=== PATIENT | male | born 1950 | race Caucasian/White ===

== ENCOUNTER → 2018-02-14 10:34 | Outpatient (POV) | payer MEDICARE, SELFPAY | PROVIDERS: Visit Provider Physician Assistant | DX: Z00.00 Encounter for general adult medical examination without abnormal findings (principal) ==

== ENCOUNTER → 2018-06-20 10:47 | Outpatient (CLI) | payer MEDICARE, SELFPAY ==
--- NOTE | 2018-06-20 11:13 | XR_ITS ---
XR shoulder RT min 2V Ordering Physician: Pk Fowler MD Patient Age: 67 years: Male HISTORY: ITS.REASON: RT SHOULDER JOINT PAIN right shoulder pain with decreased range of motion TECHNIQUE: 3 views right shoulder COMPARISON :April 24, 2016 FINDINGS There is narrowing subacromial space with hypertrophy bone along the inferior margin of acromion with the humeral head is likely beginning to form a pseudoarthrosis. Overall appearance here highly suggests underlying rotator cuff tear. Associated mild sclerotic changes at the superior aspect of the greater tuberosity and is junction with humeral head reflects this impingement. There are likely mild developing degenerative changes of glenohumeral joint. Humeral head and neck intact. AC joint arthropathy, hypertrophy. Moderate. Spurring here mainly directed directedsuperiorly. Bones well mineralized upper right ribs scapula and right lung apex unremarkable . [place] right lung clear. IMPRESSION: 1. underlying rotator cuff tear most certainly present . Marked narrowing subacromial space such that the humeral head likely impinges upon entry acromion due to the rotator cuff demise, & tear. It. 2. AC joint arthropathy hypertrophy 3. Mild degenerative changes glenohumeral joint.
== END ==
PROVIDERS: PCP Internal Medicine Adolescent Medicine; Visit Provider Internal Medicine Adolescent Medicine
DX: M25.511 Pain in right shoulder (principal)
CPT/HCPCS: 73030

== ENCOUNTER 2019-01-27 12:01 | Inpatient (IN) ==
--- NOTE | 2019-01-27 12:17 | Emergency Department Note ---
ED Disposition Clinical Impression: Gait disturbance, Multiple falls Leukocytosis Qualifiers: Leukocytosis type: unspecified Qualified Code(s): D72.829 - Elevated white blood cell count, unspecified Disposition: Admitted as Observation Condition on Discharge: Fair Referrals: Pk Fowler MD [Primary Care Provider] - - Critical Care Critical Care Time: No Attestation: On , the high probability of a clinically significant, sudden or life threatening deterioration of the following system(s) required my full and direct attention, intervention and personal management. The time I documented below is in addition to time spent performing reported procedures but includes the following listed in this critical care notation. Medical Decision Making - [place] Inquiry Pt receiving controlled substance: No Vital Signs: 01/27/19 12:17 01/27/19 12:32 01/27/19 13:32 Temperature 97.3 F L Temperature Source Temporal Artery Scan Pulse Rate [Right Brachial] 86 83 87 Respiratory Rate 17 Blood Pressure [Right Arm] 132/85 126/81 Blood Pressure Mean [Right Arm] 100 96 Blood Pressure Source [Right Arm] Automatic Cuff Blood Pressure Position [Right Arm] Sitting 02 Sat by Pulse Oximetry 93 L 94 L 94 L Oxygen Delivery Method Room Air 01/27/19 13:40 01/27/19 14:00 Temperature Temperature Source Pulse Rate [Right Brachial] 85 87 Respiratory Rate Blood Pressure [Right Arm] 148/92 H 140/79 Blood Pressure Mean [Right Arm] 110 99 Blood Pressure Source [Right Arm] Blood Pressure Position [Right Arm] 02 Sat by Pulse Oximetry 93 L 94 L Oxygen Delivery Method - Lab Data Lab Results 01/27/19 12:40: WBC 22.3 H*, RBC 5.23, Hgb 15.4, Hct 46.1, MCV 88.1, MCH 29.4, MCHC 33.4, RDW 13.3, Plt Count 120 L, MPV 9.1, Neut % (Auto) 45.9, Lymph % (Auto) 49.2, [place] % (Auto) 2.9, Eos % (Auto) 1.0, Baso % (Auto) 1.0, Neut # (Auto) 10.3 H, Lymph # (Auto) 11.0 H, [place] # (Auto) 0.7, Eos # (Auto) 0.2, Baso # (Auto) 0.2, Total Counted 100, Neutrophils % (Manual) 50, Band Neutrophils % 2.0, Lymphocytes % (Manual) 41, Atypical Lymphs % 1.0, Monocytes % (Manual) 4, Blast Cells % 2.0, Platelet Estimate Slight decrease, RBC Morphology Normal 01/27/19 12:40: Sodium 135 L, Potassium 3.4 L, Chloride 98, Carbon Dioxide 23, Anion Gap 17.4 H, BUN 19 H, Creatinine 1.29, Estimated Creat Clear 65, Estimated GFR 56 L, Est GFR ( Amer) 67, Glucose 189 H, Calcium 9.1, Total Bilirubin 0.6, AST 36, ALT 17, Alkaline Phosphatase 290 H, Troponin I < 0.02, Total Protein 7.5, Albumin 3.4, Globulin 4.1 H, Albumin/Globulin Ratio 0.8 L, TSH 2.21 01/27/19 12:40: Total Creatine Kinase 142 01/27/19 13:25: Lactate 1.7 01/27/19 13:50: Urine Color Yellow, Urine Appearance Clear, Urine pH 6.0, Ur Specific [place] 1.010, Urine Protein Trace, Urine Glucose (UA) 3+, Urine K etones Trace, Urine Blood Negative, Urine Nitrate Negative, Urine Bilirubin Negative, Urine Urobilinogen 0.2, Ur Leukocyte Esterase Negative, Urine WBC Occasional, Ur Squamous Epith Cells Occasional, Urine Bacteria 3+ Result diagrams: 01/27/19 12:40 01/27/19 12:40 Orders (Tests/Meds): ORDERS Category Date Time Status Blood Culture Stat Micro 01/27/19 13:12 Ordered Urine Culture Stat Micro 01/27/19 13:50 Received Urine Culture Stat Micro 01/27/19 14:39 Ordered - Radiology Data #1 Image(s): Chest, Hip, Femur Image Reviewed: Yes I reviewed the patient's radiology image, Yes I have reviewed radiologist's interpretation Hip and femur: No fracture dislocation Chest: Cardiomegaly, no acute process - CT Data CT Scan: Head Time Received: 14:[address] Reviewed: Yes: I have viewed the radiologist's interpretation Findings Narrative: IMPRESSION: No acute intracranial findings. Left mastoid sinus disease Dictated By: Reji Khan MD Signed By: <Electronically signed by Reji Khan MD in [place]> 01/27/19 1424 - ECG Data Tracing #1 EKG interpreted by Deo Nino MD: Rhythm: sinus Rate: 84 [place]: Left Ectopy: none Conduction: normal ST Segment Changes: none T Wave Changes: Nonspecific Q Waves: none LVH Baseline artifact present, but I consider the EKG adequate for accurate interpretation. Prior electrocardiagrams reviewed. No change from prior tracings. - Physician Consults Physician Consulted: Malcolm Time: 14:37 Reason -: Admission, Pt condition Comment/Response: Requests to admit the patient to the hospital. We discussed the patient's clinical information, including history, exam, laboratory and radiology results and ED course. Per hospital procedure, I will write temporary bridge inpatient orders on the patient. Specific orders requested by the admitting physician: Admit to observation. Catheterized urine specimen. Levaquin. General Adult HPI - General Stated complaint: ao 01/26/19/ fell Time Seen by Provider: 01/27/19 12:17 - History of Present Illness HPI narrative: Brought in by sister. He has fallen twice this week. First fell about 2:30 AM on Wednesday night while in the bathroom. Says that he got turned around on his cane. Fell into the heater. Has an abrasion of his right knee. He applied a Band-Aid. He fell again sometime during the night last night. He could not get up. He called his sister who found him this morning at 4:30 AM. He was on the floor at that time. She was able to get him up with great difficulty. She has given him a walker to try and walk with. He is able to stand with assistance. However, she says that when he tries to walk today he just stands and shakes. States he is dizzy when he stands up. He will not take any steps. He complains of a funny feeling in his right thigh and hip area, however denies any pain. His sister called Dr. Fowler, they advised him to come to the emergency room. They called for an ambulance and ambulance personnel assisted him to a car in a wheelchair. He denies any other injuries including no injury to head or neck. He has Parkinson's disease and normally has a shuffling gait, but he has been able to live alone and take care of himself. No recent changes in medications. He saw his family physician last week for routine visit and had normal blood work. He has a follow-up appointment on Wednesday. - Related Data Home Medications Medication Instructions Recorded Confirmed Allopurinol [Allopurinol 100mg 1 tab PO TID 01/27/19 01/27/19 tablet] Atorvastatin Calcium [Atorvastatin 10 mg PO DAILY 01/27/19 01/27/19 10mg Tab] Canagliflozin [Invokana] 1 tab PO DIRECTED 01/27/19 01/27/19 Carbidopa/Levodopa [Sinemet CR 1 tab PO BID 01/27/19 01/27/19 50/200mg tablet] Carvedilol [Carvedilol 25mg Tab] 1 tab PO DIRECTED 01/27/19 01/27/19 Levothyroxine Sodium 1 tab PO DAILY 01/27/19 01/27/19 [Levothyroxine 75mcg (0.075mg) Tab] Losartan Potassium 1 tab PO DIRECTED 01/27/19 01/27/19 Sitagliptin Phos/Metformin HCl 1 tab PO DIRECTED 01/27/19 01/27/19 [Janumet 50-500 mg Tablet] Tamsulosin HCl 1 tab PO DAILY 01/27/19 01/27/19 Allergies Allergy/AdvReac Type Severity Reaction Status Date / Time Penicillins [PENICILLINS] Allergy Unknown Verified 01/27/19 12:24 [facility] History - Hepatitis A Screen Attestation statement:: This patient has been screened for Hepatitis A risk factors. I have reviewed the patient's past medical history: Yes ROS Obtained: Yes All systems reviewed & no additional complaints - Constitutional Constitutional: Denies fever(s), Reports weakness - Cardiovascular Cardiovascular: Denies chest pain - Respiratory Respiratory: No cough, No dyspnea - Gastrointestinal Gastrointestingal: Denies: abdominal pain, diarrhea, vomiting - Genitourinary Male Genitourinary: Denies difficulty urinating - Musculoskeletal Musculoskeletal: Reports as per HPI - Neurologic Neurologic: Reports as per HPI Physical Exam - General General appearance: alert, in no apparent distress Comment: Sometimes slow to answer questions. Some extended pauses. - Head Head exam: atraumatic, normocephalic - Eye Eye exam: Present: normal appearance, PERRL, EOMI - ENT ENT exam: Present: mucous membranes moist - Neck Neck exam: Present: normal inspection, full ROM, trachea midline. Absent: tenderness - Chest Chest inspection: Present: normal inspection, symmetric chest wall rise - Respiratory Respiratory exam: Present: normal lung sounds bilaterally. Absent: respiratory distress - Cardiovascular Cardiovascular exam: Present: regular rate, normal rhythm, normal heart sounds - Abdominal Exam Abdominal exam: Present: soft. Absent: distention, tenderness, guarding - Extremities Exam Extremities exam: Present: full ROM, normal capillary refill, other (superficial abrasion R knee). Absent: tenderness - Neurological Exam Neurological exam: Present: alert, oriented X3, CN II-XII intact, other (No focal neurologic deficits). Absent: motor sensory deficit - Psychiatric Psychiatric exam: Present: normal affect, normal mood - Skin Skin exam: Present: warm, dry - Other Other exam information: No tenderness of right hip on palpation. No tenderness of right femur. No defo rmity. No ecchymosis or edema. No pain with internal, external rotation, or flexion of right hip.
[2019-01-27 12:50] LABS: Basophils # 0.2 K/mm3 (0-0.2); Eosinophils # 0.2 K/mm3 (0.0-0.4); Hematocrit 46.1 % (42.0-52.0); Hemoglobin 15.4 g/dL (14.1-18.0); Lymphocytes % 49.2 % (10-50); Mean Corpuscular HGB Conc 33.4 g/dL (31.8-35.4); Mean Corpuscular Hemoglobin 29.4 pg (27.0-31.2); Mean Corpuscular Volume 88.1 fl (80-94); Mean Platelet Volume 9.1 fl (7.4-10.4); Monocytes # 0.7 K/mm3 (0.1-1.0); Monocytes % 2.9 % (1.7-9.3); Neutrophils # 10.3 K/mm3 (1.8-7.8); Neutrophils % 45.9 % (37.0-80.0); Platelet Count 120 K/mm3 (142-424); Red Blood Count 5.23 M/mm3 (4.60-6.20); Red Cell Distribution Width 13.3 % (11.5-17.5); White Blood Count 22.3 K/mm3 (4.8-10.8)
[2019-01-27 13:15] LABS: Alanine Aminotransferase 17 U/L (12-78); Albumin Level 3.4 gm/dL (3.4-5.0); Albumin/Globulin Ratio 0.8 (1.1-1.8); Alkaline Phosphatase 290 U/L (46-116); Anion Gap 17.4 mEq/L (5-15); Aspartate Amino Transferase 36 U/L (15-37); Bilirubin,Total 0.6 mg/dL (0.2-1.0); Blood Urea Nitrogen 19 mg/dL (7-18); Calcium 9.1 mg/dL (8.5-10.1); Carbon Dioxide 23 mmol/L (21.0-32.0); Chloride 98 mmol/L (98-107); Globulin 4.1 gm/dl (1.3-3.2); Glucose 189 mg/dL (74-106); Lymphocytes % 41 % (10-50); Monocytes % 4 % (2-9); Neutrophils % 50 % (42-76); Potassium 3.4 mmoL/L (3.5-5.1); RBC Morphology Normal; Sodium 135 mmol/L (136-145); Thyroid Stimulating Hormone 2.21 uIU/ml (0.358-3.740); Total Cells Counted 100; Total Protein,Serum 7.5 gm/dL (6.4-8.2)
[2019-01-27 13:57] LABS: Microscopic, Urine URINE MICROSCOPIC (MICROSCOPIC)
[2019-01-27 13:59] LABS: Appearance,Urine CLEAR (Clear); Bilirubin,Urine Negative (Negative); Blood, Urine Negative (Negative); Color,Urine YELLOW (Yellow); Glucose,Urine (UA) 3+ (Negative); Ketones,Urine TRACE (Negative); Leukocyte Esterase,Urine Negative (Negative); Protein,Urine TRACE (Negative); Urobilinogen,Urine 0.2 EU/dl (0.2)
[2019-01-27 14:09] LABS: Bacteria,Urine 3+ /lpf; Squamous Epithelial Cell,Urine Occasional #/hpf (0-5); WBC,Urine Occasional #/hpf (0-3)
--- NOTE | 2019-01-27 19:46 | History & Physical Report ---
*Admission Date: 01/27/19 *Chief complaint: Freqent falls, elevated WBC *History of present illness: 68 year old long time patient of mine with DM 2, hyperlipidemia and HTN with Parkinson's disease diagnosed in the past 3 years who came to ER with increasing falls, ataxia, and instability. In ER found to have elevated WBC, o/w no major lab or xray problems, but was weak, ataxic and tired. Admitted for obs, ongoing testing. Of note, 6-8 weeks ago we increased the dose of Sinemet secondary to increasing symptoms which has helped until this weeks according to his sister. [facility] [place] History I have reviewed the patient's past medical history: Yes Medical History: Reports:: Congestive Heart Failure, Coronary Artery Disease, Diabetes Mellitus Type 2, Hyperlipidemia, Hypertension, Myocardial Infarction, Peripheral Artery Disease Denies:: Cancer, Internal Pacemaker, MRSA *Have you ever received a pneumonia vaccine?: Yes *Have you received a flu vaccine this season?: Yes Other Medical History: Reports: Hypothyroidism Comment:: Parkinson's Disease Other Surgeries: Yes: CABG, Cardiac Catheterization, Coronary Stent. No: Pacemaker Amputation: No Fractures: No - *Social History Educational Level: Attended High School Smoking Status: Never smoker Alcohol Intake: never *Occupational Status:: retired, disabled Household Members: none *Travel in the last 8 weeks: None Comment: Lives alone, retired from [employer] de[employer]. Sister helps with his affairs - Psychiatric History Expresses thoughts of harming self/others: None Suicide Plan Description: No Plan Family Hx:: Cancer, Heart Attack, Hyperlipidemia, Hypertension, Kidney Disease, Stroke, Thyroid Disorder Review of Systems - Review of Systems Review of systems:: pertinent systems reviewed and negative unless documented below - Constitutional Denies anorexia, Denies body ache(s) - Eyes Denies blind spots, Denies blurry vision - ENT Denies abnormal hearing - *Cardiovascular Reports leg swelling, Denies chest pain, Denies chest pain at rest, Denies leg pain with activity, Denies irregular heart rhythm - *Respiratory Denies change in phlegm color, Denies shortness of breath - *Gastrointestinal Denies abdominal pain - *Genitourinary Denies difficulty urinating - *Musculoskeletal Reports abnormal walking, Reports deformity, Reports stiffness - *Neurologic Reports abnormal walking, Reports abnormal movements, Reports unsteadiness, Reports dizziness, Reports frequent falls, Reports weakness, Denies headache(s) Meds Home Medications Medication Instructions Recorded Confirmed Type Allopurinol [Allopurinol 100mg 100 mg PO TID 01/27/19 01/27/19 History tablet] Atorvastatin Calcium [Atorvastatin 10 mg PO DAILY 01/27/19 01/27/19 History 10mg Tab] Canagliflozin [Invokana] 300 mg PO DAILY 01/27/19 01/27/19 History Carbidopa/Levodopa [Sinemet CR 1 tab PO BID 01/27/19 01/27/19 History 50/200mg tablet] Carvedilol [Carvedilol 25mg Tab] 25 mg PO BID 01/27/19 01/27/19 History Levothyroxine Sodium 75 mcg PO DAILY 01/27/19 01/27/19 History [Levothyroxine 75mcg (0.075mg) Tab] Losartan Potassium 50 mg PO DAILY 01/27/19 01/27/19 History Sitagliptin Phos/Metformin HCl 1 tab PO BID 01/27/19 01/27/19 History [Janumet 50-500 mg Tablet] Tamsulosin HCl 0.4 mg PO DAILY 01/27/19 01/27/19 History Allergies Allergy/AdvReac Type Severity Reaction Status Date / Time Penicillins [PENICILLINS] Allergy Unknown Verified 01/27/19 12:24 Exam Vital signs and Labs for Last 24 Hours: Temp Pulse Resp BP Pulse Ox 97.6 F 87 18 142/79 H 97 01/27/19 16:13 01/27/19 16:13 01/27/19 16:13 01/27/19 16:13 01/27/19 17:00 Laboratory Results - last 24 hr 01/27/19 12:40: WBC 22.3 H*, RBC 5.23, Hgb 15.4, Hct 46.1, MCV 88.1, MCH 29.4, MCHC 33.4, RDW 13.3, Plt Count 120 L, MPV 9.1, Neut % (Auto) 45.9, Lymph % (Auto) 49.2, [place] % (Auto) 2.9, Eos % (Auto) 1.0, Baso % (Auto) 1.0, Neut # (Auto) 10.3 H, Lymph # (Auto) 11.0 H, [place] # (Auto) 0.7, Eos # (Auto) 0.2, Baso # (Auto) 0.2, Total Counted 100, Neutrophils % (Manual) 50, Band Neutrophils % 2.0, Lymphocytes % (Manual) 41, Atypical Lymphs % 1.0, Monocytes % (Manual) 4, Blast Cells % 2.0, Platelet Estimate Slight decrease, RBC Morphology Normal 01/27/19 12:40: Sodium 135 L, Potassium 3.4 L, Chloride 98, Carbon Dioxide 23, Anion Gap 17.4 H, BUN 19 H, Creatinine 1.29, Estimated Creat Clear 65, Estimated GFR 56 L, Est GFR ( Amer) 67, Glucose 189 H, Calcium 9.1, Total Bilirubin 0.6, AST 36, ALT 17, Alkaline Phosphatase 290 H, Troponin I < 0.02, Total Protein 7.5, Albumin 3.4, Globulin 4.1 H, Albumin/Globulin Ratio 0.8 L, TSH 2.21 01/27/19 12:40: Total Creatine Kinase 142 01/27/19 13:25: Lactate 1.7 01/27/19 13:50: Urine Color Yellow, Urine Appearance Clear, Urine pH 6.0, Ur Specific [place] 1.010, Urine Protein Trace, Urine Glucose (UA) 3+, Urine Ketones Trace, Urine Blood Negative, Urine Nitrate Negative, Urine Bilirubin Negative, Urine Urobilinogen 0.2, Ur Leukocyte Esterase Negative, Urine WBC Occasional, Ur Squamous Epith Cells Occasional, Urine Bacteria 3+ I & O for Last 24 hours: Intake & Output 01/25/19 01/26/19 01/27/19 01/28/19 11:59 11:59 11:59 11:59 Intake Total 630 / 630 Output Total 320 / 320 Balance 310 / 310 Weight 178 lb 2 oz Narrative: Pleasant and oriented. Appears tired. Sitting up on bed. Stiff, masked facies as previously noted. Rigid extremities, but no major change coordinator prior exams. RRR, no murmurs, good distal pulses. Lungs clear, Abd soft. No peipheral edema. Assessment and Plan (1) Parkinson disease Current visit: Yes Status: Acute Category: Medical Code(s): G20 - Parkinson's disease ? exacerbation? See plan below (2) Gait disturbance Current visit: Yes Status: Acute Category: Medical Code(s): R26.9 - Unspecified abnormalities of gait and mobility Admit for obs, safety eval. (3) Leukocytosis Current visit: Yes Status: Acute Qualifiers: Leukocytosis type: unspecified Qualified Code(s): D72.829 - Elevated white blood cell count, unspecified Category: Medical Code(s): D72.829 - Elevated white blood cell count, unspecified ? urine as source - clean catch with 3plus bacteria. Check C and S, with I and O specimen. cover with abx given high WBC and co-morbidities (4) Multiple falls Current visit: Yes Status: Acute Category: Medical Code(s): R29.6 - Repeated falls (5) Coronary atherosclerosis Current visit: Yes Status: Acute Category: Medical Code(s): I25.10 - Atherosclerotic heart disease of [place] coronary artery without angina pectoris Co-morbidity - trops negative so far.
--- NOTE | 2019-01-28 09:24 | Progress Note ---
Internal Medicine - PN: Subj *Date: 01/28/19 *Time: 09:21 Interval history: Patient did well overnight, tolerating independent voiding. Tolerating regular diet. No falls or new neurologic deficits noted. Remained afebrile. Has had a bowel movement. Otherwise stable. Exam Vital signs and Labs for Last 24 Hours: Temp Pulse Resp BP Pulse Ox 98.3 F 88 17 133/80 91 L 01/28/19 08:00 01/28/19 08:00 01/28/19 08:00 01/28/19 08:00 01/28/19 08:00 Laboratory Results - last 24 hr 01/27/19 12:40: WBC 22.3 H*, RBC 5.23, Hgb 15.4, Hct 46.1, MCV 88.1, MCH 29.4, MCHC 33.4, RDW 13.3, Plt Count 120 L, MPV 9.1, Neut % (Auto) 45.9, Lymph % (Auto) 49.2, [place] % (Auto) 2.9, Eos % (Auto) 1.0, Baso % (Auto) 1.0, Neut # (Auto) 10.3 H, Lymph # (Auto) 11.0 H, [place] # (Auto) 0.7, Eos # (Auto) 0.2, Baso # (Auto) 0.2, Total Counted 100, Neutrophils % (Manual) 50, Band Neutrophils % 2.0, Lymphocytes % (Manual) 41, Atypical Lymphs % 1.0, Monocytes % (Manual) 4, Blast Cells % 2.0, Platelet Estimate Slight decrease, RBC Morphology Normal 01/27/19 12:40: Sodium 135 L, Potassium 3.4 L, Chloride 98, Carbon Dioxide 23, Anion Gap 17.4 H, BUN 19 H, Creatinine 1.29, Estimated Creat Clear 65, Estimated GFR 56 L, Est GFR ( Amer) 67, Glucose 189 H, Calcium 9.1, Total Bilirubin 0.6, AST 36, ALT 17, Alkaline Phosphatase 290 H, Troponin I < 0.02, Total Protein 7.5, Albumin 3.4, Globulin 4.1 H, Albumin/Globulin Ratio 0.8 L, TSH 2.21 01/27/19 12:40: Total Creatine Kinase 142 01/27/19 13:25: Lactate 1.7 01/27/19 13:50: Urine Color Yellow, Urine Appearance Clear, Urine pH 6.0, Ur Specific [place] 1.010, Urine Protein Trace, Urine Glucose (UA) 3+, Urine Ketones Trace, Urine Blood Negative, Urine Nitrate Negative, Urine Bilirubin Negative, Urine Urobilinogen 0.2, Ur Leukocyte Esterase Negative, Urine WBC Occasional, Ur Squamous Epith Cells Occasional, Urine Bacteria 3+ 01/27/19 21:21: POC Glucose 200 H 01/28/19 05:49: POC Glucose 174 H I & O for Last 24 hours: Intake & Output 01/25/19 01/26/19 01/27/19 01/28/19 23:59 23:59 23:59 23:59 Intake Total 630 / 630 480 / 480 Output Total 320 / 320 Balance 310 / 310 480 / 480 Weight 80.796 kg 81.42 kg Narrative: Pleasant and oriented. Sitting upright in bed. No acute distress Stiff, masked facies as previously noted. Rigid extremities, but no major change attendant prior exams. RRR, no murmurs, good distal pulses. Lungs clear, Abd soft, no suprapubic tenderness. No peipheral edema. Assessment and Plan (1) Parkinson disease Current visit: Yes Status: Acute Category: Medical Code(s): G20 - Parkinson's disease (2) Gait disturbance Current visit: Yes Status: Acute Category: Medical Code(s): R26.9 - Unspecified abnormalities of gait and mobility (3) Leukocytosis Current visit: Yes Status: Acute Qualifiers: Leukocytosis type: unspecified Qualified Code(s): D72.829 - Elevated white blood cell count, unspecified Category: Medical Code(s): D72.829 - Elevated white blood cell count, unspecified Still an unclear etiology. Repeat lab work ordered today. Continuing to monitor urine as it is a possible source. Has already received a dose of Levaquin in the ER. Will continue antibiotics while awaiting urine cultures so as to not leave uncovered for possible infection (4) Multiple falls Current visit: Yes Status: Acute Category: Medical Code(s): R29.6 - Repeated falls (5) Coronary atherosclerosis Current visit: Yes Status: Acute Category: Medical Code(s): I25.10 - Atherosclerotic heart disease of [place] coronary artery without angina pectoris - Assessment and plan all Dx Assessment and Plan for all problems:: Continues to require inpatient management while monitoring urine cultures and addressing leukocytosis. No further falls during admission.
[2019-01-28 10:30] LABS: Basophils # 0.2 K/mm3 (0-0.2); Eosinophils # 0.2 K/mm3 (0.0-0.4); Eosinophils % 0.7 % (0.1-12.0); Hematocrit 43.3 % (42.0-52.0); Hemoglobin 14.5 g/dL (14.1-18.0); Lymphocytes # 12.3 K/mm3 (0.7-4.5); Lymphocytes % 52.3 % (10-50); Mean Corpuscular HGB Conc 33.4 g/dL (31.8-35.4); Mean Corpuscular Hemoglobin 29.2 pg (27.0-31.2); Mean Corpuscular Volume 87.4 fl (80-94); Mean Platelet Volume 9.3 fl (7.4-10.4); Monocytes # 0.6 K/mm3 (0.1-1.0); Monocytes % 2.6 % (1.7-9.3); Neutrophils # 10.2 K/mm3 (1.8-7.8); Neutrophils % 43.4 % (37.0-80.0); Platelet Count 92 K/mm3 (142-424); Red Blood Count 4.96 M/mm3 (4.60-6.20); Red Cell Distribution Width 13.3 % (11.5-17.5); White Blood Count 23.5 K/mm3 (4.8-10.8)
[2019-01-28 10:39] LABS: Albumin Level 2.9 gm/dL (3.4-5.0); Albumin/Globulin Ratio 0.8 (1.1-1.8); Anion Gap 19.2 mEq/L (5-15); Bilirubin,Total 0.5 mg/dL (0.2-1.0); Calcium 8.3 mg/dL (8.5-10.1); Globulin 3.7 gm/dl (1.3-3.2); Potassium 3.2 mmoL/L (3.5-5.1); Total Protein,Serum 6.6 gm/dL (6.4-8.2)
--- NOTE | 2019-01-28 11:32 | Pharmacy Consult Notes ---
[facility] Pharmacy VTE Monitoring - Patient Demographics Admission date: 01/28/19 Report Date: 01/28/19 Time: 11:31 Allergies/Adverse Reactions: Patient Allergies Penicillins [PENICILLINS] Allergy (Unknown, Verified 01/27/19 12:24) Height: 1.7 m Weight: 81.42 kg Patient Problems: Current Active Problems (Updated 01/27/19 @ 19:52 by Pk Fowler MD) Gait disturbance (Acute) Multiple falls (Acute) Leukocytosis (Acute) Parkinson disease (Acute) Coronary atherosclerosis (Acute) - VTE Risk Labs: VTE Related Lab Results Hgb 14.5 g/dL (14.1-18.0) 01/28/19 10:25 Hct 43.3 % (42.0-52.0) 01/28/19 10:25 Plt Count 92 K/mm3 (142-424) L 01/28/19 10:25 BUN 27 mg/dL (7-18) H D 01/28/19 10:25 Creatinine 1.44 mg/dL (0.70-1.30) H 01/28/19 10:25 Estimated Creat Clear 57 mL/min (50-200) 01/28/19 10:25 VTE Score: 3 VTE Risk Level: Low Risk - Prophylaxis Types of VTE Prophylaxis: TEDS Knee High (KHURRAM HOSE ORDERED) Location of Applied Device: Bilateral Lower Extremeties
[2019-01-28 12:49] LABS: Eosinophils % 1 % (0-3); Lymphocytes % 34 % (10-50); Monocytes % 5 % (2-9); Neutrophils % 58 % (42-76); RBC Morphology Normal; Total Cells Counted 100
[2019-01-29 06:33] LABS: Basophils # 0.1 K/mm3 (0-0.2); Basophils % 0.5 % (0.1-2.0); Eosinophils # 0.2 K/mm3 (0.0-0.4); Eosinophils % 0.6 % (0.1-12.0); Hematocrit 43.1 % (42.0-52.0); Hemoglobin 14.5 g/dL (14.1-18.0); Lymphocytes # 15.6 K/mm3 (0.7-4.5); Lymphocytes % 60.5 % (10-50); Mean Corpuscular HGB Conc 33.7 g/dL (31.8-35.4); Mean Corpuscular Hemoglobin 29.6 pg (27.0-31.2); Mean Corpuscular Volume 87.8 fl (80-94); Mean Platelet Volume 9.8 fl (7.4-10.4); Monocytes # 0.4 K/mm3 (0.1-1.0); Monocytes % 1.7 % (1.7-9.3); Neutrophils # 9.5 K/mm3 (1.8-7.8); Neutrophils % 36.7 % (37.0-80.0); Platelet Count 87 K/mm3 (142-424); Red Cell Distribution Width 13.6 % (11.5-17.5)
[2019-01-29 06:37] LABS: White Blood Count 25.7 K/mm3 (4.8-10.8)
[2019-01-29 06:46] LABS: Albumin Level 2.7 gm/dL (3.4-5.0); Albumin/Globulin Ratio 0.8 (1.1-1.8); Anion Gap 22.8 mEq/L (5-15); Bilirubin,Total 0.6 mg/dL (0.2-1.0); Calcium 8.7 mg/dL (8.5-10.1); Globulin 3.6 gm/dl (1.3-3.2); Total Protein,Serum 6.3 gm/dL (6.4-8.2)
[2019-01-29 06:48] LABS: Lymphocytes % 48 % (10-50); Monocytes % 8 % (2-9); Neutrophils % 38 % (42-76); Nucleated Red Blood Cells 1; Total Cells Counted 100
[2019-01-29 06:49] LABS: RBC Morphology Normal
[2019-01-29 06:52] LABS: Potassium 2.8 mmoL/L (3.5-5.1)
--- NOTE | 2019-01-29 08:58 | Progress Note ---
Internal Medicine - PN: Subj *Date: 01/29/19 *Time: 08:57 Interval history: Patient feels better than he did yesterday. Is "bright-eyed and bushy tailed" and ate all of his breakfast. His sister tells me he had some abdominal pain yesterday. No fevers. Exam Vital signs and Labs for Last 24 Hours: Temp Pulse Resp BP Pulse Ox 97.9 F 84 19 135/75 96 01/29/19 08:00 01/29/19 08:00 01/29/19 08:26 01/29/19 08:00 01/29/19 08:26 Laboratory Results - last 24 hr 01/28/19 10:25: WBC 23.5 H*, RBC 4.96, Hgb 14.5, Hct 43.3, MCV 87.4, MCH 29.2, MCHC 33.4, RDW 13.3, Plt Count 92 L, MPV 9.3, Neut % (Auto) 43.4, Lymph % (Auto) 52.3 H, [place] % (Auto) 2.6, Eos % (Auto) 0.7, Baso % (Auto) 1.0, Neut # (Auto) 10.2 H, Lymph # (Auto) 12.3 H, [place] # (Auto) 0.6, Eos # (Auto) 0.2, Baso # (Auto) 0.2, Total Counted 100, Neutrophils % (Manual) 58, Lymphocytes % (Manual) 34, Monocytes % (Manual) 5, Eosinophils % (Manual) 1, Metamyelocytes % 2.0 H, Platelet Estimate Marked decrease, RBC Morphology Normal 01/28/19 10:25: Sodium 133 L, Potassium 3.2 L, Chloride 98, Carbon Dioxide 19 L, Anion Gap 19.2 H, BUN 27 H D, Creatinine 1.44 H, Estimated Creat Clear 57, Estimated GFR 49 L, Est GFR ( Amer) 59, Glucose 235 H D, Calcium 8.3 L, Total Bilirubin 0.5, AST 35, ALT 14, Alkaline Phosphatase 377 H, Total Protein 6.6, Albumin 2.9 L D, Globulin 3.7 H, Albumin/Globulin Ratio 0.8 L 01/28/19 11:00: POC Glucose 211 H 01/28/19 16:57: POC Glucose 228 H 01/28/19 20:33: POC Glucose 159 H 01/29/19 06:22: POC Glucose 166 H 01/29/19 06:27: WBC 25.7 H*, RBC 4.90, Hgb 14.5, Hct 43.1, MCV 87.8, MCH 29.6, MCHC 33.7, RDW 13.6, Plt Count 87 L, MPV 9.8, Neut % (Auto) 36.7 L, Lymph % (Auto) 60.5 H, [place] % (Auto) 1.7, Eos % (Auto) 0.6, Baso % (Auto) 0.5, Neut # (Auto) 9.5 H, Lymph # (Auto) 15.6 H, [place] # (Auto) 0.4, Eos # (Auto) 0.2, Baso # (Auto) 0.1, Total Counted 100, Neutrophils % (Manual) 38 L, Band Neutrophils % 6.0, Lymphocytes % (Manual) 48, Monocytes % (Manual) 8, Nucleated RBCs 1, Platelet Estimate Slight decrease, RBC Morphology Normal 01/29/19 06:27: Sodium 138, Potassium 2.8 L*, Chloride 101, Carbon Dioxide 17 L, Anion Gap 22.8 H, BUN 30 H, Creatinine 1.23, Estimated Creat Clear 68, Estimated GFR 59, Est GFR ( Amer) 71 D, Glucose 181 H D, Calcium 8.7, Total Bilirubin 0.6, AST 40 H, ALT 13, Alkaline Phosphatase 459 H, Total Protein 6.3 L , Albumin 2.7 L, Globulin 3.6 H, Albumin/Globulin Ratio 0.8 L I & O for Last 24 hours: Intake & Output 01/26/19 01/27/19 01/28/19 01/29/19 11:59 11:59 11:59 11:59 Intake Total 1110 / 1110 720 / 720 Output Total 320 / 320 1200 / 1200 Balance 790 / 790 -480 / -480 Weight 179 lb 8 oz 181 lb 5 oz Microbiology Reports for the Last 24 Hours: Microbiology 01/27/19 14:50 Urine,Catheterized Urine Culture - Preliminary NO GROWTH AFTER 24 HOURS 01/27/19 13:50 Urine,Clean Catch Urine Culture - Preliminary NO GROWTH AFTER 24 HOURS Narrative: Patient is pleasant, talkative. Weak, rigidity noted. Oropharynx clear, heart rate regular. Abdomen soft, minimal diffuse discomfort but no actual tenderness or masses that I can palpate. No ankle edema. Assessment and Plan (1) Parkinson disease Current visit: Yes Status: Acute Category: Medical Code(s): G20 - Parkinson's disease (2) Gait disturbance Current visit: Yes Status: Acute Category: Medical Code(s): R26.9 - Unspecified abnormalities of gait and mobility (3) Leukocytosis Current visit: Yes Status: Acute Qualifiers: Leukocytosis type: unspecified Qualified Code(s): D72.829 - Elevated white blood cell count, unspecified Category: Medical Code(s): D72.829 - Elevated white blood cell count, unspecified Uncertain etiology-cultures are negative. I will perform protein electrophoresis, have pathology look at the peripheral smear and get heme-onc involved as an outpatient if patient is able to be discharged tomorrow. (4) Multiple falls Current visit: Yes Status: Acute Category: Medical Code(s): R29.6 - Repeated falls (5) Coronary atherosclerosis Current visit: Yes Status: Acute Category: Medical Code(s): I25.10 - Atherosclerotic heart disease of [place] coronary artery without angina pectoris (6) Hypokalemia Current visit: Yes Status: Acute Category: Medical Code(s): E87.6 - Hypokalemia Replace today orally
[2019-01-30 06:39] LABS: Basophils # 0.5 K/mm3 (0-0.2); Basophils % 1.6 % (0.1-2.0); Eosinophils # 0.1 K/mm3 (0.0-0.4); Eosinophils % 0.4 % (0.1-12.0); Hematocrit 42.8 % (42.0-52.0); Hemoglobin 14.4 g/dL (14.1-18.0); Lymphocytes # 23.3 K/mm3 (0.7-4.5); Lymphocytes % 70.6 % (10-50); Mean Corpuscular HGB Conc 33.6 g/dL (31.8-35.4); Mean Corpuscular Hemoglobin 29.7 pg (27.0-31.2); Mean Corpuscular Volume 88.3 fl (80-94); Mean Platelet Volume 9.8 fl (7.4-10.4); Monocytes # 0.6 K/mm3 (0.1-1.0); Monocytes % 1.7 % (1.7-9.3); Neutrophils # 8.5 K/mm3 (1.8-7.8); Neutrophils % 25.7 % (37.0-80.0); Platelet Count 81 K/mm3 (142-424); Red Blood Count 4.85 M/mm3 (4.60-6.20); Red Cell Distribution Width 13.7 % (11.5-17.5)
[2019-01-30 07:04] LABS: Albumin Level 2.6 gm/dL (3.4-5.0); Albumin/Globulin Ratio 0.7 (1.1-1.8); Anion Gap 19.7 mEq/L (5-15); Bilirubin,Total 0.7 mg/dL (0.2-1.0); Calcium 8.5 mg/dL (8.5-10.1); Globulin 3.7 gm/dl (1.3-3.2); Potassium 3.7 mmoL/L (3.5-5.1); Total Protein,Serum 6.3 gm/dL (6.4-8.2)
[2019-01-30 07:30] LABS: Eosinophils % 1 % (0-3); Lymphocytes % 69 % (10-50); Monocytes % 3 % (2-9); Neutrophils % 21 % (42-76); Total Cells Counted 100
--- NOTE | 2019-01-30 08:40 | Progress Note ---
Internal Medicine - PN: Subj *Date: 01/30/19 *Time: 08:37 Interval history: Overnight patient feels a little bit worse, he ate a good breakfast this morning but feels like his belly is somewhat swollen. I reviewed the results of the CT scan and have discussed this with patient and his sister. Exam Vital signs and Labs for Last 24 Hours: Temp Pulse Resp BP Pulse Ox 98.7 F 75 17 107/63 L 91 L 01/30/19 00:00 01/30/19 00:00 01/30/19 00:00 01/30/19 00:00 01/30/19 00:00 Laboratory Results - last 24 hr 01/29/19 10:57: POC Glucose 168 H 01/29/19 16:04: POC Glucose 175 H 01/29/19 20:17: POC Glucose 192 H 01/30/19 06:08: POC Glucose 229 H 01/30/19 06:12: WBC 33.0 H* D, RBC 4.85, Hgb 14.4, Hct 42.8, MCV 88.3, MCH 29.7, MCHC 33.6, RDW 13.7, Plt Count 81 L, MPV 9.8, Neut % (Auto) 25.7 L, Lymph % (Auto) 70.6 H, [place] % (Auto) 1.7, Eos % (Auto) 0.4, Baso % (Auto) 1.6, Neut # (Auto) 8.5 H, Lymph # (Auto) 23.3 H, [place] # (Auto) 0.6, Eos # (Auto) 0.1, Baso # (Auto) 0.5 H, Total Counted 100, Neutrophils % (Manual) 21 L, Band Neutrophils % 3.0, Lymphocytes % (Manual) 69 H, Atypical Lymphs % 3.0, Monocytes % (Manual) 3, Eosinophils % (Manual) 1, Platelet Estimate Moderate decrease 01/30/19 06:12: Sodium 132 L, Potassium 3.7 D, Chloride 97 L, Carbon Dioxide 19 L, Anion Gap 19.7 H, BUN 51 H D, Creatinine 2.19 H D, Estimated Creat Clear 39, Estimated GFR 30 L, Est GFR ( Amer) 36 L D, Glucose 235 H D, Calcium 8.5, Total Bilirubin 0.7, AST 41 H, ALT 13, Alkaline Phosphatase 480 H, Total Protein 6.3 L, Albumin 2.6 L, Globulin 3.7 H, Albumin/Globulin Ratio 0.7 L I & O for Last 24 hours: Intake & Output 01/27/19 01/28/19 01/29/19 01/30/19 11:59 11:59 11:59 11:59 Intake Total 1110 / 1110 870 / 870 720 / 720 Output Total 320 / 320 1200 / 1200 Balance 790 / 790 -330 / -330 720 / 720 Weight 179 lb 8 oz 181 lb 5 oz 184 lb 1 oz Microbiology Reports for the Last 24 Hours: Microbiology 01/27/19 14:50 Urine,Catheterized Urine Culture - Final NO GROWTH AFTER 48 HOURS 01/27/19 13:30 Blood Blood Culture - Preliminary NO GROWTH AFTER 48 HOURS 01/27/19 13:25 Blood Blood Culture - Preliminary NO GROWTH AFTER 48 HOURS 01/27/19 13:50 Urine,Clean Catch Urine Culture - Final NO GROWTH AFTER 48 HOURS Narrative: Patient appears much more pale and sick looking than yesterday. Anterior lung orss are clear, heart rate regular. Abdomen is distended, ascites are clinically evident today. Tenderness in both lower quadrants diffusely, but no rebound or guarding. No distal edema. No change in neurologic exam. Assessment and Plan (1) Parkinson disease Current visit: Yes Status: Acute Category: Medical Code(s): G20 - Parkinson's disease (2) Gait disturbance Current visit: Yes Status: Acute Category: Medical Code(s): R26.9 - Unspecified abnormalities of gait and mobility (3) Leukocytosis Current visit: Yes Status: Acute Qualifiers: Leukocytosis type: unspecified Qualified Code(s): D72.829 - Elevated white blood cell count, unspecified Category: Medical Code(s): D72.829 - Elevated white blood cell count, unspecified (4) Multiple falls Current visit: Yes Status: Acute Category: Medical Code(s): R29.6 - Repeated falls (5) Coronary atherosclerosis Current visit: Yes Status: Acute Category: Medical Code(s): I25.10 - Ather osclerotic heart disease of [place] coronary artery without angina pectoris (6) Hypokalemia Current visit: Yes Status: Resolved Category: Medical Code(s): E87.6 - Hypokalemia Improved, hold potassium today given increased kidney function (7) Acute kidney injury Current visit: Yes Status: Acute Category: Medical Code(s): N17.9 - Acute kidney failure, unspecified Questionable etiology, increase fluids as noted. DC levofloxacin given no evidence of infection. Hold losartan. Hold potassium as noted. (8) History of CHF (congestive heart failure) Current visit: Yes Status: Chronic Category: Medical Code(s): Z86.79 - Personal history of other diseases of the circulatory system History of mild CHF. Watch fluids closely (9) Sigmoid stricture Current visit: Yes Status: Acute Category: Medical Code(s): K56.699 - Other intestinal obstruction unspecified as to partial versus complete obstruction CT scan results discussed with patient and sister. GI consultation for possible sigmoidoscopy.
--- NOTE | 2019-01-30 13:21 | Procedure Note ---
[facility] Procedure Note Procedure Note:: Gastroenterology Consultation Date of Service-January 30, 2019 History of Present Illness: Mr. Nava is a 68-year-old gentleman who was hospitalized due to having 2 falls in the last week. The patient has had a CT scan of the abdomen showing an abnormal segment in the colon as well as ascites. The patient has noted increased abdominal girth over the last couple of weeks. He has noted weakness. He reports no prior history of liver disease. His lab work showed an alkaline phosphatase of 480 and ALT level 13. He is not jaundiced. His albumin level was 2.6 with rising creatinine up to 2.16 today. The patient does have some lower extremity edema. He also has thrombocytopenia with platelet count of 81,000. The patient reports no change in bowel habits or rectal bleeding. His hemoglobin was 14.4 with hematocrit 42.8. His brother had colon cancer at the age of 62. The patient has never had a colonoscopy but did have a negative Cologuard a couple of years ago. He reports no weight loss. He has no fever, chills or abdominal pain. He reports no acholic stools. He reports no family history of liver disease. The patient has no history of alcohol abuse or tobacco abuse. He is a long-standing diabetic. Past Medical History: 1. CASHD 2. Type 2 diabetes mellitus 3. Cardiomyopathy 4. Hyperlipidemia 5. Hypertension 6. Parkinson's disease Past Surgical History: 1. Coronary artery bypass graft 2. Coronary artery stenting Medications: 1. Allopurinol 2. Atorvastatin 3. Invokana 4. Carbidopa levodopa 5. Losartan 6. Janumet 7. Tamsulosin ALLERGIES: No known drug allergies Social History: The patient is disabled and retired. He reports no use of alcohol or tobacco. He lives in [place] Family History: Noncontributory (brother with colon cancer as above) Review of Systems: Noncontributory Physical Exam: Physical Examination: Gen.: The patient is a weak appearing male in no acute distress HEENT: Normocephalic/atraumatic extraocular movements are intact anicteric Neck: Supple no lymphadenopathy Chest: Clear to auscultation Cardiovascular: Regular rate and rhythm with systolic murmur Abdomen: Normoactive bowel sounds moderate ascites present with abdominal distention but no tenderness, no rebound or guarding, liver is ballotable, spleen tip palpable Extremities: 1-2+ edema edema Labs: Alkaline phosphatase 480 ALT 13 AST 41 Hemoglobin 14.4 Hematocrit 42.8 Platelet count 81,000 Creatinine 2.16 Albumin 2.6 Radiology: See CT scan report Impression/Plan: 1. New onset ascites. I do feel that this is most likely from portal hypertension. I would recommend large volume paracentesis with fluid studies to be sent for serum to ascites albumin gradient/SAAG (greater than 1.1 indicative of portal hypertension/cirrhosis ascites). I will also send the fluid for cytology, cell count and differential, culture and sensitivity and serum protein. Given the fact that the patient has an elevated alkaline phosphatase, I am concerned about cholestatic liver conditions including primary biliary cirrhosis, autoimmune cholangitis or granulomatous hepatitis. I will send antimitochondrial antibody, smooth muscle antibody, KHUSHI and BARBARA level. I will also obtain viral hepatitis serologies and iron studies. I do feel that some of his etiology for cirrhosis is likely to be from metabolic disease/RODNEY. I will obtain hepatic fibrotic markers, meld score, ammonia level and alpha- fetoprotein. I have discussed the case with Pk Fowler M.D. I am somewhat concerned about the patient's creatinine and the possibility of hepatorenal syndrome. The patient will need albumin infusion with his paracentesis. I would approach diuretics with some caution because of the potential for worsening of his creatinine/kidney function. 2. Abnormal CT scan with long segment colon abnormality. Given the fact that the patient is not anemic, this will be certainly a part of the investigation but I have low suspicion for colon carcinoma. However, the patient does have a brother with colon cancer at the age of 62 and has never had a screening colonoscopy. I will likely do colonoscopy at some point within the next couple of weeks but I do feel that a bowel preparation may significantly impact his renal function presently. We may consider doing sigmoidoscopy to view the involved segment.
[2019-01-30 14:03] LABS: INR 1.76 (0.9-1.1); Prothrombin Time 17.8 seconds (9.4-11.8)
[2019-01-31 07:02] LABS: Basophils # 0.4 K/mm3 (0-0.2); Basophils % 1.3 % (0.1-2.0); Eosinophils # 0.1 K/mm3 (0.0-0.4); Eosinophils % 0.2 % (0.1-12.0); Hematocrit 42.1 % (42.0-52.0); Hemoglobin 14.1 g/dL (14.1-18.0); Lymphocytes # 23.8 K/mm3 (0.7-4.5); Lymphocytes % 77.6 % (10-50); Mean Corpuscular HGB Conc 33.5 g/dL (31.8-35.4); Mean Corpuscular Hemoglobin 29.4 pg (27.0-31.2); Mean Corpuscular Volume 87.7 fl (80-94); Mean Platelet Volume 9.9 fl (7.4-10.4); Monocytes # 0.4 K/mm3 (0.1-1.0); Monocytes % 1.3 % (1.7-9.3); Neutrophils % 19.6 % (37.0-80.0); Platelet Count 72 K/mm3 (142-424); Red Blood Count 4.81 M/mm3 (4.60-6.20); Red Cell Distribution Width 13.6 % (11.5-17.5); White Blood Count 30.6 K/mm3 (4.8-10.8)
[2019-01-31 07:13] LABS: Hepatitis B Core Antibody IgM Negative (Negative); Hepatitis B Surface Antigen Negative (Negative)
[2019-01-31 07:23] LABS: Albumin Level 2.5 gm/dL (3.4-5.0); Albumin/Globulin Ratio 0.7 (1.1-1.8); Anion Gap 20.8 mEq/L (5-15); Bilirubin,Total 0.9 mg/dL (0.2-1.0); Calcium 8.2 mg/dL (8.5-10.1); Globulin 3.6 gm/dl (1.3-3.2); Total Protein,Serum 6.1 gm/dL (6.4-8.2)
[2019-01-31 07:39] LABS: Potassium 2.8 mmoL/L (3.5-5.1)
--- NOTE | 2019-01-31 07:48 | Progress Note ---
Internal Medicine - PN: Subj *Date: 01/31/19 *Time: 13:45 Interval history: Overnight Mr. Nava had no fevers. BP remains soft, but not frankly hypotensive. Worsening Abdominal distension. Wanting to eat, but only tolerating small amounts. More ill appearing but pleasant this morning on exam. Labs this morning with worsening kidney function, hypokalemia, and thrombocytopenia Exam Vital signs and Labs for Last 24 Hours: Temp Pulse Resp BP Pulse Ox 97.6 F 82 24 120/66 91 L 01/31/19 04:00 01/31/19 04:00 01/31/19 04:00 01/31/19 04:00 01/31/19 04:00 Laboratory Results - last 24 hr 01/30/19 10:32: POC Glucose 237 H 01/30/19 13:28: Ferritin 36160 H 01/30/19 13:28: Ammonia 14 L 01/30/19 13:28: PT 17.8 H, INR 1.76 H 01/30/19 16:35: POC Glucose 218 H 01/30/19 20:25: POC Glucose 289 H 01/31/19 05:39: POC Glucose 268 H 01/31/19 06:21: WBC 30.6 H*, RBC 4.81, Hgb 14.1, Hct 42.1, MCV 87.7, MCH 29.4, MCHC 33.5, RDW 13.6, Plt Count 72 L, MPV 9.9, Neut % (Auto) 19.6 L, Lymph % (Auto) 77.6 H, [place] % (Auto) 1.3 L, Eos % (Auto) 0.2, Baso % (Auto) 1.3, Neut # (Auto) 6.0, Lymph # (Auto) 23.8 H, [place] # (Auto) 0.4, Eos # (Auto) 0.1, Baso # (Auto) 0.4 H 01/31/19 06:21: Sodium 131 L, Potassium 2.8 L* D, Chloride 97 L, Carbon Dioxide 16 L, Anion Gap 20.8 H, BUN 69 H D, Creatinine 2.45 H, Estimated Creat Clear 35, Estimated GFR 27 L, Est GFR ( Amer) 32 L, Glucose 258 H, Calcium 8.2 L, Magnesium 2.3 H, Total Bilirubin 0.9, AST 45 H, ALT 12, Alkaline Phosphatase 562 H, Total Protein 6.1 L, Albumin 2.5 L, Globulin 3.6 H, Albumin/Globulin Ratio 0.7 L I & O for Last 24 hours: Intake & Output 01/28/19 01/29/19 01/30/19 01/31/19 23:59 23:59 23:59 23:59 Intake Total 1110 / 1110 720 / 960 2332 / 2332 1705 / 1705 Output Total 1200 / 1200 200 / 200 Balance -90 / -90 720 / 960 2132 / 2132 1705 / 1705 Weight 81.42 kg 82.242 kg 83.461 kg 84.964 kg Narrative: Patient appears pale, ill, more uncomfortable compared to yesterday. Anterior lung ross are clear, heart rate regular. Abdomen with interval increase in distended, tight, tympanic to percussion, no fluid wave Tenderness diffusely, but no rebound or guarding. 1+ LE edema to knee No change in neurologic exam Assessment and Plan (1) Parkinson disease Current visit: Yes Status: Acute Category: Medical Code(s): G20 - Parkinson's disease (2) Gait disturbance Current visit: Yes Status: Acute Category: Medical Code(s): R26.9 - Unspecified abnormalities of gait and mobility (3) Leukocytosis Current visit: Yes Status: Acute Qualifiers: Leukocytosis type: unspecified Qualified Code(s): D72.829 - Elevated white blood cell count, unspecified Category: Medical Code(s): D72.829 - Elevated white blood cell count, unspecified (4) Multiple falls Current visit: Yes Status: Acute Category: Medical Code(s): R29.6 - Repeated falls (5) Coronary atherosclerosis Current visit: Yes Status: Acute Category: Medical Code(s): I25.10 - Atherosclerotic heart disease of [place] coronary artery without angina pectoris (6) Hypokalemia Current visit: Yes Status: Resolved Category: Medical Code(s): E87.6 - Hypokalemia replace IV today (7) Acute kidney injury Current visit: Yes Status: Acute Category: Medical Code(s): N17.9 - Acute kidney failure, unspecified (8) History of CHF (congestive heart failure) Current visit: Yes Status: Chronic Category: Medical Code(s): Z86.79 - Personal history of other diseases of the circulatory system (9) Sigmoid stricture Current visit: Yes Status: Acute Category: Medical Code(s): K56.699 - Other intestinal obstruction unspecified as to partial versus complete obstruction (10) Decompensated liver disease Current visit: Yes Status: Acute Category: Medical Code(s): K74.69 - Other cirrhosis of liver 68-year-old male with a recent finding of hypodensities on the liver with imaging, elevated alk phos concerning for cholestatic pattern of liver injury, coagulopathy, hypoalbuminemia, and thrombocytopenia. Concerning for acute decompensated liver disease. Additionally patient has worsening kidney injury in the setting of his newfound liver disease and worsening intra-abdominal distension/pressure. Highly suspicious for hepatorenal syndrome vs abdominal compartment syndrome in the setting of labs suggestive of prerenal injury. Requires decompression of bowel obstruction and removal of ascites if appropriate in an attempt to improve kidney function. Requires continued acute admission due to severity of clinical status and tenuous nature of his illness. (11) Thrombocytopenia Current visit: Yes Status: Acute Category: Medical Code(s): D69.6 - Thrombocytopenia, unspecified
[2019-01-31 08:33] LABS: Hepatitis C Antibody <0.1 s/co ratio (0.0-0.9)
[2019-01-31 11:52] LABS: Lymphocytes % 57 % (10-50); Monocytes % 1 % (2-9); Neutrophils % 18 % (42-76); Total Cells Counted 100
[2019-01-31 13:46] LABS: Anti-Smith Antibody <0.2 AI (0.0-0.9)
--- NOTE | 2019-01-31 23:43 | Procedure Note ---
[facility] Procedure Note Procedure Note:: Spoke with patients POA, sister, about patient's latest laboratory findings. Had a phone call this afternoon with pathology who outpatient pathological smear. Concern for lymphoproliferative disorder, suspected lymphoma or leukemia. Patient noted to have blasts and cellular components to hematopoietic cells given concern for bone marrow infiltration.. Given current diagnosis though not definitive, discussed to very clear options for treatment of patient with patient's POA. Patient's POA clear that she does not want to pursue aggressive measures that may induce pain, discomfort, or increase in physical distress to patient. Prefers not to transfer the patient to tertiary care center for further work-up, definitive diagnosis, and potential chemotherapy. This is not in line with her understanding of the patient's goals. She would prefer to keep the patient comfortable and pursue comfort/hospice measures for his care. Will discuss transfer to hospice in the morning with care management. This is in line with patient and POA's goals of care per her report. They understand that this decision means is eminent and his life expectancy is on the order of days to weeks.
--- NOTE | 2019-02-01 03:21 | Death Note ---
Pronouncement Note - Date and Time of Date of : 02/01/19 Time of : 02:25 - PCOD Preliminary cause of : Bacteremia - Additional Data Confirmation of : no pulse, no respirations, no heart sounds, pupils fixed and dilated Family: not available Attending/PCP notified?: Yes Attending physician: Pk Fowler MD Was code activated?: No Autopsy requested?: No school examiner notified?: Yes Organ bank notified?: Yes Advance directives: Yes
--- NOTE | 2019-02-01 05:37 | Cardiology Report ---
PROCEDURE: 2-D M-mode and color Doppler study INDICATIONS FOR THE TEST: Chest pain COPD Heart Murmur Tobacco Smoking Palpitations Fatigue Syncope Edema HypertensionXDiabetes Mellitus Rheumatic Fever SOBXDOE Obesity HyperlipidemiaX Family History HD Additional History CM,CAD,CABG,CIRRHOSIS, LIMITED POOR ACOUSTIC WINDOWS IMAGES OFF AXIS PATIENT INFORMATION HEIGHT:68 WEIGHT:187 GENDER: Male B/P:120/66 2-D/M-MODE INTERPRETATION: 2-D MEASUREMENTS OBSERVED VALUES IN CMS Right Ventricular Dimension (RVDd) Interventricular Septum (Thickness)(IVsd) Left Ventricular Internal Dimensions(LVIDd) Left Ventricular Posterior Wall (Thickness)(LVPWd) Aortic Root Aortic Cusp Separation Left Atrial Dimensions (LAD) 2D 1. Technically very difficult and poor study, limited views were obtained 2. Left atrium is mildly enlarged, left ventricle is normal size, visually estimated ejection fraction approximately 45-50%, endocardial surfaces are very poorly visualized, there appears to be moderate hypokinesis involving the inferior basal wall. A repeat study with definitely contrast is recommended. 3. The right-sided chambers are not well visualized. 4. The aortic valve is thickened and calcified. 5. The mitral and tricuspid valve leaflets are minimally thickened. 6. The pulmonic valve is poorly present. 7. No significant pericardial effusion noted. DOPPLER INTERROGATION: There is only color flow mapping performed, which showed presence of mild mitral regurgitation. There is no spectral Doppler performed. CONCLUSION: 1. Technically very difficult and poor study. 2. Visually estimated ejection fraction approximately 45-50%, with segmental wall motion abnormality described above, a repeat study with Definity contrast is recommended. 3. No significant pericardial effusion noted.
--- NOTE | 2019-02-01 08:55 | Death Note ---
Discharge Sum: Prov - Provider Primary care physician: Pk Fowler MD Admitting clinician: Pk Fowler Attending physician on admission: Pk Fowler Consults: 01/30/19 08:24 Consult to Gastroenterology [CONS] Routine Consulting Provider: Rio Rodriguez Comment: CT with distension, ? lesion in sigmoid, liver abnormalities on CT scan Pronouncing clinician: Tim Daniel Discharge Sum: Summary - Date and Time Date of admission: 01/27/19 15:57 Date of : 02/01/19 Time of : 02:25 - Summary Details: Please refer to patient's H&P for details, patient initially admitted for significant ataxia and frequent falls with severe functional decline. Found to be significantly afflicted with leukocytosis, UTI was initially suspected but ruled out. Patient was admitted and work-up was started. Patient declined precipitously with evidence of renal failure, liver failure and sigmoid distention with possible obstruction, but peripheral smear showed acute lymphoproliferative disorder, either acute myelogenous leukemia versus acute lymphoma. Patient and his sister-his power of employee benefits attorney-determined that they wished no aggressive care and wished comfort measures and possible hospice consultation. This process was initiated but patient from his disease process this morning at the daytime indicated. - Additional Data Confirmation of as documented by pronouncing clinician: no pulse, no respirations Family: contacted Attending/PCP notified?: Yes Attending physician: Pk Fowler MD Was code activated?: No Autopsy requested?: No cigarette making examiner notified?: No Organ bank notified?: No Advance directives: Yes Hospice patient?: No
[2019-02-01 13:54] LABS: Angiotensin Converting Enzyme 18 U/L (14-82)
== END 2019-02-01 06:48 | disposition expired | DRG 442 ==
LOC: ER 12:01 → 2ND 15:06 → INTOOBSV 15:57 → 2ND 15:58 → UNDODISOB 02-01 06:48
PROVIDERS: ADMIT Internal Medicine Adolescent Medicine; ATTEND Internal Medicine Adolescent Medicine
DX: K74.69 Other cirrhosis of liver; K72.90 Hepatic failure, unspecified without coma; D69.6 Thrombocytopenia, unspecified; I25.2 Old myocardial infarction; N17.9 Acute kidney failure, unspecified; Z95.1 Presence of aortocoronary bypass graft; G20 Parkinson's disease; R27.0 Ataxia, unspecified; Z88.0 Allergy status to penicillin; D47.9 Neoplasm of uncertain behavior of lymphoid, hematopoietic and related tissue, unspecified; R29.6 Repeated falls; K56.699 Other intestinal obstruction unspecified as to partial versus complete obstruction; I25.10 Atherosclerotic heart disease of native coronary artery without angina pectoris; E78.5 Hyperlipidemia, unspecified; E11.9 Type 2 diabetes mellitus without complications; E03.9 Hypothyroidism, unspecified; C92.00 Acute myeloblastic leukemia, not having achieved remission; I11.0 Hypertensive heart disease with heart failure; Z95.5 Presence of coronary angioplasty implant and graft; I50.9 Heart failure, unspecified
CPT/HCPCS: 36415; 70450; 71010; 71045; 73502; 73552; 74178; 76700; 80053; 80074; 81001; 81596; 82105; 82140; 82164; 82378; 82550; 82728; 82962; 83605; 83735; 84155; 84165; 84443; 84484; 85007; 85025; 85060; 85610; 86225; 86235; 86255; 86256; 87040; 87086; 87506; 93005; 93308; 96365; 97116; 97162; 97166; 97530; 97535; 99285; G0378; J1956; Q9967